=== PATIENT | female | born 1940 | race Caucasian/White ===

== ENCOUNTER 2018-07-31 16:14 | Observation (INO) ==
[2018-07-31] MEDS ORDERED: Aspirin 325 MG TABLET PO ONE (16:37)
--- NOTE | 2018-07-31 16:40 | Emergency Department Note ---
Disposition Clinical Impression: Pleural effusion, Dyspnea on exertion Disposition: Admitted As Inpatient Condition: Fair Referrals: Geovanni Gama DO [Primary Care Provider] - Forms: ED Satisfaction Letter Time of Disposition: 20:39 SOB HPI - General Chief Complaint: ED Shortness of Breath/Dyspnea Stated Complaint: ELEAZAR Time Seen by Provider: 07/31/18 16:20 Source: patient Mode of arrival: ambulatory Limitations: no limitations Nursing Notes Reviewed: Yes Vital Signs Reviewed: Yes - History of Present Illness Patient is a 78-year-old female with past medical history of hypertension, previous pleural effusions after surgery that required drainage. Patient was unsure of what surgery she underwent. States that this episode was several years ago. Symptoms of cough, right ear discomfort for the past 5 or 6 days. She was seen by her primary care physician Dr. Johnson, she says that she saw his nurse practitioner, did not have chest x-ray performed but was prescribed antibiotics for possible bronchitis and is unsure what antibiotic she was prescribed. She is taken 4-5 days and has 2 days left. She says that for the past 2 days, she has developed posterior chest discomfort and some shortness of breath, she also has substernal chest discomfort this started around the same time. States that this posterior chest pain feels somewhat similar to when she had pleural effusions. Describes that pain as a dull ache. She describes the substernal chest discomfort as a pressure that gets worse and with exertion, does not worsen with deep inspiration. No associated nausea, vomiting, fevers, diarrhea, abdominal pain. She denies any dysuria, hematuria, vaginal bleeding or discharge. Denies any history of COPD or CHF. - Related Data Home Medications Medication Instructions Recorded Confirmed Estradiol [Estrace] 1 mg PO DAILY 08/29/15 10/10/15 Lisinopril [Zestril] 20 mg PO HS 08/29/15 10/10/15 Metoprolol XL (24 HR) Succ [Toprol 25 mg PO DAILY 08/29/15 10/10/15 XL] Multivitamin/Iron/Folic Acid 1 each PO DAILY 10/10/15 10/10/15 [Centrum Complete Multivit Tab] Previous Rx's Medication Instructions Recorded Gabapentin [Neurontin] 300 mg PO HS #14 capsule 09/07/15 Docusate [Colace] 100 mg PO BID #60 capsule 09/18/15 Simethicone [Gas-X] 80 mg PO QID PRN #50 tab.chew 09/18/15 Allergies Allergy/AdvReac Type Severity Reaction Status Date / Time clonazepam [From Klonopin] AdvReac PT UNSURE Verified 08/30/15 19:21 OF REACTION Oxycodone AdvReac Headache Verified 10/10/15 19:48 All systems ED: reviewed and negative except as stated. Constitutional: Denies: fever Cardiovascular: Reports: chest pain Respiratory: Reports: cough, dyspnea. Denies: wheezes, sputum production Gastrointestinal: Denies: abdominal pain, nausea, vomiting, diarrhea Genitourinary: Denies: urgency, dysuria, frequency, hematuria, discharge Integumentary: Denies: rash Neurological: Denies: headache, weakness, numbness, paresthesias Past Medical History - Past Medical History Attestation: Yes The following information was validated with the patient. 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 history - Social History Smoking Status: Never smoker Smokeless Tobacco Status: No Alcohol use: Reports: none Drug use: Reports: none Physical Exam - General Limitations: no limitations General appearance: alert, in no apparent distress - Head Head exam: atraumatic, normocephalic, normal inspection - Eye Eye exam: Present: normal appearance, PERRL, EOMI - ENT ENT exam: normal exam, normal oropharynx, mucous membranes moist - Neck Neck exam: Present: normal inspection, full ROM, trachea midline - Chest Chest inspection: Present: normal inspection, symmetric chest wall rise - Respiratory Respiratory exam: Present: other (Mild decrease in left lower lobe breath sounds. Otherwise, no significant wheezing or crackles appreciated. No signs of any increased work of breathing or respiratory distress at this time.). Absent: respiratory distress, wheezes, stridor, accessory muscle use - Cardiovascular Cardiovascular exam: Present: regular rate, normal rhythm, normal heart sounds - Abdominal Exam Abdominal exam: Present: soft, Non-Tender. Absent: tenderness, distention, guarding, rebound, rigidity - Extremities Exam Extremities exam: Present: normal inspection, full ROM. Absent: tenderness, pedal edema - Back Exam Back exam: Present: normal inspection, full ROM. Absent: tenderness, CVA tenderness (R), CVA tenderness (L) - Neurological Exam Neurological exam: Present: alert, oriented X3 - Psychiatric Psychiatric exam: Present: normal affect, normal mood - Skin Skin exam: Present: warm, dry, intact, normal color Course Course Narrative: Patient was mildly hypertensive. Otherwise, the rest of the vitals within normal limits. Physical exam shows some decrease in left lower lobe breath sounds. Otherwise, no overt crackles or wheezes. The rest of the physical exam was fairly benign. No reproducible chest discomfort on exam. We will perform EKG, chest x-ray, basic blood work and troponin level. Patient was given aspirin. EK07/31/2018 at 16:37. Normal sinus rhythm. Heart rate 84. CO 162. QRS 91. QTC 413. Normal axis. No acute ST elevation or depression. 17:39 labs showed no major abnormalities. Troponin negative. EKG showed no acute ST changes. Chest x-ray shows pleural effusions and bilateral lower lobes. We will obtain CT noncontrast to assess further. Aspirin held at this time in case patient requires any intervention for drainage of effusions. 20:37 CT shows small to moderate bilateral pleural effusions. Is also ectasia of the ascending aorta that is stable. Also cyst is present. Results discussed with the patient. Give the patient a dose of Lasix and discuss admission. She is still short of breath, satting 95% on room air but is short of breath when she is up walking around. We will go ahead and give her aspirin. We will admit to the hospitalist at this time for further care. Recommend possible echocardiogram and pulmonary consult for further evaluation of pleural effusions. Currently, there are no signs of any pedal edema that would be consistent with CHF. Chest X-Ray 07/31/18 16:35 IMPRESSION: Bilateral pleural effusions. D/ / Lorenzo Maya MD / Lorenzo Maya MD Interpreting Provider: Lorenzo Maya MD Chest CT 07/31/18 17:37 IMPRESSION: Small to moderate bilateral effusions with associated airspace opacity, atelectasis favored over pneumonia. The right effusion appears to be minimally loculated. Ectasia of the ascending aorta measuring up to 4.2 cm, similar to prior examination. Stable low-density lesion in the posterior mediastinum adjacent to the descending aorta. 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 D/ / 07/31/2018 19:22:45 Kirk Chung MD / Lizzeth Loza Interpreting Provider: Kirk Chung MD Vital Signs Temperature 98.2 F 07/31/18 16:17 Pulse Rate 88 07/31/18 16:17 Respiratory Rate 20 07/31/18 16:17 Blood Pressure 156/84 07/31/18 16:17 O2 Sat by Pulse Oximetry 95 07/31/18 16:17 Temperature 98.2 F 07/31/18 16:38 Pulse Rate 83 07/31/18 19:45 Respiratory Rate 16 07/31/18 19:45 Blood Pressure 169/91 07/31/18 19:45 O2 Sat by Pulse Oximetry 96 07/31/18 19:45 Oxygen Delivery Oxygen Delivery Room Air Shortness of Breath/Dyspnea - [facility] Narrative Medical decision making narrative: Patient was mildly hypertensive. Otherwise, the rest of the vitals within normal limits. Physical exam shows some decrease in left lower lobe breath sounds. Otherwise, no overt crackles or wheezes. The rest of the physical exam was fairly benign. No reproducible chest discomfort on exam. We will perform EKG, chest x-ray, basic blood work and troponin level. Patient was given aspirin. EK07/31/2018 at 16:37. Normal sinus rhythm. Heart rate 84. CO 162. QRS 91. QTC 413. Normal axis. No acute ST elevation or depression. 17:39 labs showed no major abnormalities. Troponin negative. EKG showed no acute ST changes. Chest x-ray shows pleural effusions and bilateral lower lobes. We will obtain CT noncontrast to assess further. Aspirin held at this time in case patient requires any intervention for drainage of effusions. 20:37 CT shows small to moderate bilateral pleural effusions. Is also ectasia of the ascending aorta that is stable. Also cyst is present. Results discussed with the patient. Give the patient a dose of Lasix and discuss admission. She is still short of breath, satting 95% on room air but is short of breath when she is up walking around. We will go ahead and give her aspirin. We will admit to the hospitalist at this time for further care. Recommend possible echocardiogram and pulmonary consult for further evaluation of pleural effusions. Currently, there are no signs of any pedal edema that would be consistent with CHF. - Medical Records Medical records reviewed: Yes I reviewed the patient's medical records. - Lab Data Lab results reviewed: Yes I reviewed the patient's lab results. Result diagrams: 07/31/18 16:50 07/31/18 16:50 Lab Results 07/31/18 07/31/18 07/31/18 Range/Units 16:50 16:50 16:50 WBC 9.7 (4.3-11.1) K/mcL RBC 4.22 (3.82-4.97) M/mcL Hgb 13.4 (11.5-15.4) g/dL Hct 40.5 (35.3-44.9) % MCV 96.0 (83.0-100.0) fL MCH 31.8 (28.0-33.3) pg MCHC 33.1 (31.6-35.5) g/dL RDW 11.8 (11.5-14.5) % Plt Count 178 (140-400) K/mcL MPV 10.3 (9.4-12.4) fL Immature Gran % 0.4 (0-4) % Seg Neutrophils % 81.2 % Lymphocytes % 6.1 % Monocytes % 8.3 % Eosinophils % 3.9 % Basophils % 0.1 % Neutrophils # 7.9 (1.6-8.9) K/mcL Lymphocytes # 0.6 (0.6-4.6) K/mcL Monocytes # 0.8 (0.0-1.3) K/mcL Eosinophils # 0.4 (0.0-0.6) K/mcL Basophils # 0.0 (0.0-0.2) K/mcL Sodium 136 (136-145) mEq/L Potassium 4.0 (3.5-5.1) mEq/L Chloride 105 (98-107) mEq/L Carbon Dioxide 22 L (23-29) mEq/L BUN 10 (8-23) mg/dL Creatinine 0.70 (0.60-1.20) mg/dL Est GFR ( Amer) > 60 (> 60) Est GFR (Non-Af Amer) > 60 (> 60) BUN/Creatinine Ratio 14 (6-26) Glucose 111 H (70-105) mg/dL Calculated Osmolality 282 (280-300) Calcium 9.1 (8.6-10.3) mg/dL Total Bilirubin 0.8 (0.3-1.0) mg/dL Direct Bilirubin 0.1 (0.0-0.2) mg/dL Indirect Bilirubin 0.7 (0.0-1.2) mg/dL AST 18 (13-39) Units/L ALT 6 L (7-52) Units/L Alkaline Phosphatase 85 (34-104) Units/L Troponin I < 0.03 (< 0.04) ng/mL B-Natriuretic Peptide 99 (Less than 100) pg/mL Serum Total Protein 6.4 (6.4-8.9) g/dL Albumin 3.9 (3.5-5.7) g/dL Globulin 2.5 (2.4-3.5) g/dL Albumin/Globulin Ratio 1.6 (1.1-2.2) Urine Color (Yellow) Urine Clarity (Clear) Urine pH (5.0-8.0) pH Units Ur Specific [place] (1.010-1.025) Urine Protein (Neg-Trace) mg/dL Urine Glucose (UA) (Normal) mg/dL Urine Ketones (Negative) mg/dL Urine Blood (Negative) Urine Nitrite (Negative) Urine Bilirubin (Negative) Urine Urobilinogen (Normal) mg/dL Ur Leukocyte Esterase (Negative) Ur Culture Indicated? (NO) 07/31/18 Range/Units 17:10 WBC (4.3-11.1) K/mcL RBC (3.82-4.97) M/mcL Hgb (11.5-15.4) g/dL Hct (35.3-44.9) % MCV (83.0-100.0) fL MCH (28.0-33.3) pg MCHC (31.6-35.5) g/dL RDW (11.5-14.5) % Plt Count (140-400) K/mcL MPV (9.4-12.4) fL Immature Gran % (0-4) % Seg Neutrophils % % Lymphocytes % % Monocytes % % Eosinophils % % Basophils % % Neutrophils # (1.6-8.9) K/mcL Lymphocytes # (0.6-4.6) K/mcL Monocytes # (0.0-1.3) K/mcL Eosinophils # (0.0-0.6) K/mcL Basophils # (0.0-0.2) K/mcL Sodium (136-145) mEq/L Potassium (3.5-5.1) mEq/L Chloride (98-107) mEq/L Carbon Dioxide (23-29) mEq/L BUN (8-23) mg/dL Creatinine (0.60-1.20) mg/dL Est GFR ( Amer) (> 60) Est GFR (Non-Af Amer) (> 60) BUN/Creatinine Ratio (6-26) Glucose (70-105) mg/dL Calculated Osmolality (280-300) Calcium (8.6-10.3) mg/dL Total Bilirubin (0.3-1.0) mg/dL Direct Bilirubin (0.0-0.2) mg/dL Indirect Bilirubin (0.0-1.2) mg/dL AST (13-39) Units/L ALT (7-52) Units/L Alkaline Phosphatase (34-104) Units/L Troponin I (< 0.04) ng/mL B-Natriuretic Peptide (Less than 100) pg/mL Serum Total Protein (6.4-8.9) g/dL Albumin (3.5-5.7) g/dL Globulin (2.4-3.5) g/dL Albumin/Globulin Ratio (1.1-2.2) Urine Color Yellow (Yellow) Urine Clarity Clear (Clear) Urine pH 7.5 (5.0-8.0) pH Units Ur Specific [place] < 1.005 L (1.010-1.025) Urine Protein Negative (Neg-Trace) mg/dL Urine Glucose (UA) Normal (Normal) mg/dL Urine Ketones Trace H (Negative) mg/dL Urine Blood Negative (Negative) Urine Nitrite Negative (Negative) Urine Bilirubin Negative (Negative) Urine Urobilinogen Normal (Normal) mg/dL Ur Leukocyte Esterase Negative (Negative) Ur Culture Indicated? NO (NO) - Radiology Data Radiology results reviewed: Yes I reviewed the patient's radiology results. Chest X-Ray 10/06/18 16:35 IMPRESSION: Bilateral pleural effusions. D/ / Lorenzo Maya MD / Lorenzo Maya MD Interpreting Provider: Lorenzo Maya MD Chest CT 07/31/18 17:37 IMPRESSION: Small to moderate bilateral effusions with associated airspace opacity, atelectasis favored over pneumonia. The right effusion appears to be minimally loculated. Ectasia of the ascending aorta measuring up to 4.2 cm, similar to prior examination. Stable low-density lesion in the posterior mediastinum adjacent to the descending aorta. 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 D/ / 07/31/2018 19:22:45 Kirk Chung MD / Lizzeth Loza Interpreting Provider: Kirk Chung MD - EKG Data EKG attestation: Yes I reviewed and interpreted this EKG. Raj - Raj Situation: Demographics, MOA Background: Presenting Complaint, Relevant PMH, Meds, & Allergies Assessment: Vital Signs, Course and respsone to treatment, Exam Concerns, Patient/Family Expectation, Pertinant Lab Results Recommendation: Barrier(s) to disposition, Recommendation based on pending studies, treatments, or consults Raj Report Given to: Dr. Ale Anthony Repor Time: 20:39
[2018-07-31 17:01] LABS: Basophils % 0.1 %; Eosinophils # 0.4 K/mcL (0.0-0.6); Eosinophils % 3.9 %; Hematocrit 40.5 % (35.3-44.9); Hemoglobin 13.4 g/dL (11.5-15.4); Immature Granulocytes % 0.4 % (0-4); Lymphocytes # 0.6 K/mcL (0.6-4.6); Lymphocytes % 6.1 %; Mean Corpuscular HGB Conc 33.1 g/dL (31.6-35.5); Mean Corpuscular Hemoglobin 31.8 pg (28.0-33.3); Mean Platelet Volume 10.3 fL (9.4-12.4); Monocytes # 0.8 K/mcL (0.0-1.3); Monocytes % 8.3 %; Neutrophils # 7.9 K/mcL (1.6-8.9); Platelet Count 178 K/mcL (140-400); Red Blood Count 4.22 M/mcL (3.82-4.97); Red Cell Distribution Width 11.8 % (11.5-14.5); Segmented Neutrophils % 81.2 %
[2018-07-31 17:27] LABS: BUN/Creatinine Ratio 14 (6-26); Blood Urea Nitrogen 10 mg/dL (8-23); Calcium 9.1 mg/dL (8.6-10.3); Carbon Dioxide 22 mEq/L (23-29); Chloride 105 mEq/L (98-107); Glucose 111 mg/dL (70-105); Osmolality,Calculated 282 (280-300); Sodium 136 mEq/L (136-145); eGFR For Non-African Americans > 60 (> 60)
[2018-07-31 17:28] LABS: Troponin I < 0.03 ng/mL (< 0.04)
[2018-07-31 17:35] LABS: Bilirubin,Urine Negative (Negative); Blood,Urine Negative (Negative); Clarity,Urine Clear (Clear); Color,Urine Yellow (Yellow); Glucose,Urine (UA) Normal (Normal); Ketones,Urine Trace mg/dL (Negative); Leukocyte Esterase,Urine Negative (Negative); Nitrite,Urine Negative (Negative); PH,Urine 7.5 pH Units (5.0-8.0); Protein,Urine Negative (Neg-Trace); Specific Gravity,Urine < 1.005 (1.010-1.025); Urobilinogen,Urine Normal (Normal)
--- NOTE | 2018-07-31 17:43 | Emergency Department Note ---
Disposition Clinical Impression: Pleural effusion, Dyspnea on exertion Disposition: Admitted As Inpatient Referrals: Geovanni Gama DO [Primary Care Provider] - Forms: ED Satisfaction Letter General Adult HPI - General Chief complaint: ED Shortness of Breath/Dyspnea Stated complaint: ELEAZAR Time Seen by Provider: 07/31/18 16:20 Source: patient Mode of arrival: ambulatory Limitations: no limitations - History of Present Illness Pain Scale: 8 - Related Data Home Medications Medication Instructions Recorded Confirmed Estradiol [Estrace] 1 mg PO DAILY 08/29/15 10/10/15 Lisinopril [Zestril] 20 mg PO HS 08/29/15 10/10/15 Metoprolol XL (24 HR) Succ [Toprol 25 mg PO DAILY 08/29/15 10/10/15 XL] Multivitamin/Iron/Folic Acid 1 each PO DAILY 10/10/15 10/10/15 [Centrum Complete Multivit Tab] Previous Rx's Medication Instructions Recorded Gabapentin [Neurontin] 300 mg PO HS #14 capsule 09/07/15 Docusate [Colace] 100 mg PO BID #60 capsule 09/18/15 Simethicone [Gas-X] 80 mg PO QID PRN #50 tab.chew 09/18/15 Allergies Allergy/AdvReac Type Severity Reaction Status Date / Time clonazepam [From Klonopin] AdvReac PT UNSURE Verified 08/30/15 19:21 OF REACTION Oxycodone AdvReac Headache Verified 10/10/15 19:48 Constitutional: Denies: fever Cardiovascular: Reports: chest pain Respiratory: Reports: cough, dyspnea. 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 NURSE OBSTETRICS history - Social History Smoking Status: Never smoker Smokeless Tobacco Status: No Alcohol use: Reports: none Drug use: Reports: none Physical Exam - General Limitations: no limitations General appearance: alert, in no apparent distress Course Vital Signs Temperature 98.2 F 10/06/18 16:17 Pulse Rate 88 07/31/18 16:17 Respiratory Rate 20 07/31/18 16:17 Blood Pressure 156/84 07/31/18 16:17 O2 Sat by Pulse Oximetry 95 07/31/18 16:17 Temperature 98.2 F 07/31/18 16:38 Pulse Rate 88 07/31/18 16:38 Respiratory Rate 20 07/31/18 16:38 Blood Pressure 156/84 07/31/18 16:38 O2 Sat by Pulse Oximetry 95 07/31/18 16:38 Oxygen Delivery Oxygen Delivery Room Air Medical Decision Making - Lab Data Result diagrams: 07/31/18 16:50 07/31/18 16:50 Lab Results 07/31/18 07/31/18 07/31/18 Range/Units 16:50 16:50 16:50 WBC 9.7 (4.3-11.1) K/mcL RBC 4.22 (3.82-4.97) M/mcL Hgb 13.4 (11.5-15.4) g/dL Hct 40.5 (35.3-44.9) % MCV 96.0 (83.0-100.0) fL MCH 31.8 (28.0-33.3) pg MCHC 33.1 (31.6-35.5) g/dL RDW 11.8 (11.5-14.5) % Plt Count 178 (140-400) K/mcL MPV 10.3 (9.4-12.4) fL Immature Gran % 0.4 (0-4) % Seg Neutrophils % 81.2 % Lymphocytes % 6.1 % Monocytes % 8.3 % Eosinophils % 3.9 % Basophils % 0.1 % Neutrophils # 7.9 (1.6-8.9) K/mcL Lymphocytes # 0.6 (0.6-4.6) K/mcL Monocytes # 0.8 (0.0-1.3) K/mcL Eosinophils # 0.4 (0.0-0.6) K/mcL Basophils # 0.0 (0.0-0.2) K/mcL Sodium 136 (136-145) mEq/L Potassium 4.0 (3.5-5.1) mEq/L Chloride 105 (98-107) mEq/L Carbon Dioxide 22 L (23-29) mEq/L BUN 10 (8-23) mg/dL Creatinine 0.70 (0.60-1.20) mg/dL Est GFR ( Amer) > 60 (> 60) Est GFR (Non-Af Amer) > 60 (> 60) BUN/Creatinine Ratio 14 (6-26) Glucose 111 H (70-105) mg/dL Calculated Osmolality 282 (280-300) Calcium 9.1 (8.6-10.3) mg/dL Troponin I < 0.03 (< 0.04) ng/mL B-Natriuretic Peptide 99 (Less than 100) pg/mL Attestation Statement - Attestation Attestation: I examined this patient and my medical decision-making was reviewed with the Resident Physician. I agree with the documented findings, disposition and treatment plan as described except to the extent set forth below. 78-year-old female presents emergency room for shortness of breath. Patient has a history of bilateral pleural effusions after a hiatal hernia and esophageal surgery years ago requiring bilateral chest tube placement. She states she felt short of breath again that she had at that time. Her x-ray is concerning for bilateral pleural effusions. She is no evidence of any CHF on physical exam based on no lower extremity swelling. Her BNP is also within normal limits. We will do a CT of the chest without contrast. Patient will need to be admitted for further workup of this low effusions.
[2018-07-31 17:56] LABS: Alanine Aminotransferase 6 Units/L (7-52); Albumin 3.9 g/dL (3.5-5.7); Albumin/Globulin Ratio 1.6 (1.1-2.2); Alkaline Phosphatase 85 Units/L (34-104); Aspartate Amino Transferase 18 Units/L (13-39); Bilirubin,Direct 0.1 mg/dL (0.0-0.2); Bilirubin,Indirect 0.7 mg/dL (0.0-1.2); Bilirubin,Total 0.8 mg/dL (0.3-1.0); Globulin 2.5 g/dL (2.4-3.5); Total Protein 6.4 g/dL (6.4-8.9)
[2018-07-31] MEDS ORDERED: Furosemide 20 MG/2 ML VIAL IVP ONE ×2 (19:35→21:46)
[2018-07-31] MEDS ORDERED: Naloxone 0.4 MG/ML INJ IVP PRN (21:42)
[2018-07-31] MEDS ORDERED: Acetaminophen 325 MG TABLET PO PRN (21:42)
--- NOTE | 2018-07-31 21:50 | Internal Med History&Physical ---
Date of Encounter: 08/01/18 Time of Encounter: 21:50 Internal Medicine - H&P: HPI Chief complaint: Shortness of Breath Admitted From: Emergency Dept Plans for Post Hospital Care: Home History of present illness: Ms. Cabezas is a 78 year old female with past medical history of hypertension , GERD, hiatal hernia repair who presented to the emergency department for shortness of breath. She states her shortness of breath began a week ago, with associated upper torso swelling, she states it felt like her bra was tighter. She was also having associated ear pain and urinary frequency for which she visited her family physician. The PCP started and antibiotic the patient cannot recall for the ear pain. Since then the patient has had increasing shortness of breath and edema and urinary frequency. She also mentions increased salt intake over the last week. She also mentions the onset of a pleuritic type pain. On presentation to the emergency department her vital signs were within normal limits however due to the complaint of shortness of breath workup was initiated. Chest x-ray demonstrated bilateral pleural effusions, EKG showed sinus rhythm and normal rate, chest CT corroborated bilateral pleural effusions. Troponin was less than 0.03, BNP was triple her baseline but still under 100, rest of laboratory results were noncontributory. Past Med Surg Social Fam HX - Past Medical History Medical history: arthritis, asthma, GERD, hypertension, other Additional medical history: PT DENIES HYPERLIPIDEMIA Psychiatric history: anxiety, depression - Past Surgical History Surgical History: JESUS/BSO, other Additional surgical history: HERNIA REPAIR. esophagus surgery - Social History Smoking Status: Never smoker Smokeless Tobacco Status: No Alcohol use: none Drug use: none - Family History Brother Living Status: Hx Family Cardiac Disorders: Yes (Myocardial infarction) Hx Family Cancer: Yes (Brain tumor) Mother Hx Family Cardiac Disorders: Yes (Heart disease) Internal Medicine - H&P: Meds Estradiol [Estrace] 1 mg PO DAILY 08/29/15 [History] Lisinopril [Zestril] 20 mg PO HS 08/29/15 [History] Metoprolol XL (24 HR) Succ [Toprol XL] 25 mg PO DAILY 08/29/15 [History] Gabapentin [Neurontin] 300 mg PO HS #14 capsule 09/07/15 [Rx] Docusate [Colace] 100 mg PO BID #60 capsule 09/18/15 [Rx] Simethicone [Gas-X] 80 mg PO QID PRN #50 tab.chew 09/18/15 [Rx] Multivitamin/Iron/Folic Acid [Centrum Complete Multivit Tab] 1 each PO DAILY [History] 3 Allergy/AdvReac Type Severity Reaction Status Date / Time clonazepam [From Klonopin] AdvReac PT UNSURE Verified 08/30/15 19:21 OF REACTION Oxycodone AdvReac Headache Verified 10/10/15 19:48 All Systems PM: A 10-system review of systems was performed and is negative for pertinent findings except as documented above in the HPI. - Constitutional Constitutional: no fatigue, no fever(s), no weakness - Cardiovascular Cardiovascular ROS IM: dyspnea, edema, no chest pain, no irregular heart rhythm , no syncope - Respiratory Respiratory: no excessive phlegm production - Gastrointestinal Gastrointestinal: no abdominal pain, no diarrhea, no vomiting - Genitourinary Genitourinary: urinary frequency - Neurological Neurological ROS: no abnormal speech, no focal weakness - Psychiatric Psychiatric: no confusion - Constitutional Vitals: Temp Pulse Resp BP Pulse Ox 98.2 F 82 16 164/85 96 07/31/18 16:38 07/31/18 21:09 07/31/18 21:09 07/31/18 21:09 07/31/18 21:09 Exam: Patient in no acute distress, alert and oriented 3 Cranial nerves II through XII intact Heart in regular rate and rhythm without murmur or gallop Lungs exhibited scattered crackles superiorly and diminished lung sounds inferiorly Abdomen soft and nontender with normal bowel sounds present Bilateral lower extremities nonedematous, non vesicular rash present Skin warm and dry Internal Med - H&P Results - Labs CBC & Chem 7: 07/31/18 16:50 07/31/18 16:50 - Assessment and plan (1) Acute respiratory failure Current Visit: Yes Status: Acute Assessment and plan: Patient presented for shortness of breath CT chest on admission identified bilateral pleural effusions Patient has had 1 previous episode of pleural effusion associated with status post Moraima fundoplication Suspect pleural effusions are secondary to heart failure BNP was elevated to 3 times her baseline Patient does not have previous diagnosis of heart failure Previous echo in 2014 showed EF60% She does admit to increased salt intake recently EKG on admission shows sinus rhythm and normal rate Hemodynamically stable Patient given 20 mg IV Lasix once Plan 20mg PO LAsix BID Cardiac diet fluid restricted to 2L Strict ins and outs and daily weights Echocardiogram Cardiology Consult for new onset heart failure Qualifiers: Respiratory failure complication: unspecified whether with hypoxia or hypercapnia Qualified Code(s): J96.00 - Acute respiratory failure, unspecified whether with hypoxia or hypercapnia (2) Bilateral pleural effusion Current Visit: Yes Status: Acute Assessment and plan: Bilateral pleural effusion identified on chest CT Likely secondary to new onset heart failure Patient's labs are relatively benign, white count within normal limits Differentials include inflammatory or infectious or neoplastic process Ectasia seen on ascending aorta, unchanged from previous imaging Plan Echocardiogram to rule out Cardiac etiology Infectious etiology unlikely with normal labs Continue to monitor (3) Hypertension Current Visit: No Status: Chronic Assessment and plan: Patient has chronic hypertension managed with home medications Blood pressure stable here We will hold home medications until confirmed by pharmacy Qualifiers: Hypertension type: essential hypertension Qualified Code(s): I10 - Essential (primary) hypertension (4) DVT prophylaxis Current Visit: No Status: Acute Assessment and plan: Intermittent pneumatic compression devices 3 times a day - Time Spent With Patient Total time spent is greater than 50% in coordination of care (as documented) at patient's floor/unit and/or counseling patient:
[2018-08-01 04:46] LABS: Basophils % 0.2 %; Eosinophils # 0.4 K/mcL (0.0-0.6); Eosinophils % 5.9 %; Hematocrit 37.8 % (35.3-44.9); Hemoglobin 12.5 g/dL (11.5-15.4); Immature Granulocytes % 0.3 % (0-4); Lymphocytes % 16.1 %; Mean Corpuscular HGB Conc 33.1 g/dL (31.6-35.5); Mean Corpuscular Hemoglobin 31.7 pg (28.0-33.3); Mean Corpuscular Volume 95.9 fL (83.0-100.0); Mean Platelet Volume 9.6 fL (9.4-12.4); Monocytes # 0.8 K/mcL (0.0-1.3); Monocytes % 13.3 %; Neutrophils # 3.9 K/mcL (1.6-8.9); Platelet Count 222 K/mcL (140-400); Red Blood Count 3.94 M/mcL (3.82-4.97); Red Cell Distribution Width 11.8 % (11.5-14.5); Segmented Neutrophils % 64.2 %
[2018-08-01 05:14] LABS: BUN/Creatinine Ratio 14 (6-26); Blood Urea Nitrogen 11 mg/dL (8-23); Calcium 9.1 mg/dL (8.6-10.3); Carbon Dioxide 28 mEq/L (23-29); Chloride 104 mEq/L (98-107); Glucose 80 mg/dL (70-105); Osmolality,Calculated 286 (280-300); Potassium 3.5 mEq/L (3.5-5.1); Sodium 139 mEq/L (136-145); eGFR For Non-African Americans > 60 (> 60)
[2018-08-01] MEDS: Furosemide 20 MG TABLET PO SCH ×2 (06:54→17:33)
[2018-08-01] MEDS ORDERED: Albuterol 2.5 MG/3 ML NEBULIZER IH PRN (12:19)
--- NOTE | 2018-08-01 12:25 | Internal Med Progress Note ---
<Julienne Buckley - Last Filed: 08/01/18 14:56> Hospitalist Progress Note - Encounter Date of Encounter: 08/01/18 - Exam Vitals: Temp Pulse Resp BP Pulse Ox 98.1 F 88 16 114/75 95 08/01/18 14:45 08/01/18 14:45 08/01/18 14:45 08/01/18 14:45 08/01/18 14:45 - Assessment and Plan (1) DVT prophylaxis Current Visit: No Status: Acute (2) Hypertension Current Visit: No Status: Chronic (3) Bilateral pleural effusion Current Visit: Yes Status: Acute (4) Acute respiratory failure Current Visit: Yes Status: Acute - Time Spent with Patient Total time spent is greater than 50% in coordination of care (as documented) at patient's floor/unit and/or counseling patient: Internal Medicine: Result - Labs CBC & Chem 7: 08/01/18 04:36 08/01/18 04:36 Labs: Short CBC 08/01/18 Range/Units 04:36 WBC 6.1 (4.3-11.1) K/mcL Hgb 12.5 (11.5-15.4) g/dL Hct 37.8 (35.3-44.9) % Plt Count 222 (140-400) K/mcL Neutrophils # 3.9 (1.6-8.9) K/mcL BMP 08/01/18 04:36 Sodium 139 Potassium 3.5 Chloride 104 Carbon Dioxide 28 BUN 11 Creatinine 0.79 Glucose 80 Calcium 9.1 Consult Discharge Plan - Plan Referrals: Geovanni Gama DO [Primary Care Provider] - - Attending Attestation I examined this patient and my medical decision-making was reviewed with the Resident Physician Dr Castañeda. I agree with the documented findings, disposition and treatment plan as described except to the extent set forth below /addl details below. Ms Cabezas presented with sob x1 week and was found to have bl pleural effusions. Awake, resting in bed. Notes one week of worsening sob associated with dyspnea on exertion and orthopnea in recent days. She denies any le edema, pnd, cough, sputum, wheezing, sinus congestion. Denies chest pain, palpitations or chf history. History of "toxemia" per pt with fluid in lungs in remote past that requires "tubes to drain it". No fevers, chills, night sweats, weight loss or gain. She is a never smoker. She is active daily at home,taking outings, but no recent long trips, denies immobilization, calf pain, calf swelling. While she was refusing lasix last night she did take it today. Of note her ROS obtained today differs from in ED in which she reported cough and right ear pain for 5days, and 2 days of substernal chest discomfort that is similar to whne she had effusions before. gen- alert, awake,appears stated age cv- reg rate and rhythm, normal s1,s2, no murmurs appreciated, no jvd, no HJ reflex, no le edema lungs- + crackles bl bases, worse on left, normal resp effort on o2 nc, no rhonchi or wheezing abd- soft, non tender, non distended, + bs neuro- AAOx3 Shortness of Breath, no docuemtned Hypoxia on review of ED course, rather normal sats with subjective sob on room air Likely 2/2 Pleural Effusions, etiology uk at this time, rule out cardiac etiology, specifically chf, acs; possible infectious precipitating factor given sxs of cough she reported to ED, this is not c/w PE given vs, and history -s/p IV lasix, now oral BID as she is intermittently refusing and preferring oral vs iv lasix, strict i/os weight, net neg near 1L this am, prn o2 nc -no infectious process evident on CT chest, will repeat CXR after further diuresis -cards consulted on admit for concern for new onset chf, ekg without ischemic changes, trop neg, will trend, tele, echo pending,fu cards recs -if no improvement with diuresis will obtain IR thoracentesis and send fluid studies <Ori Castañeda - Last Filed: 08/01/18 16:39> Hospitalist Progress Note - Encounter Date of Encounter: 08/01/18 Time of Encounter: 09:45 - Subjective Interval History: Patient was seen and examined up and since morning. Patient states that overall she is bouncing from admission last evening. She does state that she is continuing to feel short of breath and feels tight in her chest. She states this is feels very similar to when she had pleural effusions which did require thoracentesis and chest tubes bilaterally in the past. She is very concerned this morning about her symptoms and is inquiring about another thoracentesis. She denies any symptoms of fevers, chills, cough, nausea, vomiting. She denies any chest pain but does admit to this tightness in her chest. - Exam Vitals: Temp Pulse Resp BP Pulse Ox 98.1 F 87 15 125/73 94 08/01/18 12:03 08/01/18 12:08/01/18 12:03 08/01/18 12:03 08/01/18 12:03 Exam: Gen.: Vitals noted. No acute distress. AAOx3, mildly anxious appearing HEENT: PERRL/EOMI, oropharynx clear, Normocephalic, atraumatic, MMM Cardiac: RRR, no murmur, +S1/S2 Pulmonary: Mild wheezing on left, as well as diminished sounds in bases. equal chest expansion Abdomen: soft, nontender, BS noted, no guarding, no rebound. MSK: ROM intact, no joint swelling noted Extremities: no BLE edema, nontender calf, no cyanosis or clubbing Neuro: A&Ox3, moves all extremities, no focal deficits Psych: Appropriate mood and behavior - Assessment and Plan (1) Acute respiratory failure Current Visit: Yes Status: Acute Assessment and Plan: Patient presented for shortness of breath -At this time, etiology remains unclear. Possibly secondary to pleural effusions in the setting of diastolic heart failure versus viral bronchitis CT chest on admission identified bilateral pleural effusions Patient has had 1 previous episode of pleural effusion associated with status post Moraima fundoplication which did require chest tubes BNP within normal onset emergency department of 99 Previous echo in 2015 showed EF60% with mild diastolic dysfunction EKG on admission shows sinus rhythm and normal rate, negative troponin x3 She was started on Lasix 20 mg by mouth twice a day with good diuresis (-1.3 L since admission) --Repeat echocardiogram pending Plan Cardiac diet fluid restricted to 2L Strict ins and outs and daily weights Cardiology Consulted and do not suspect new onset heart failure however will follow with echocardiogram results. Consider ischemic eval if no etiology identified. Start DuoNeb treatments Continue supplemental oxygen Consider diagnostic thoracentesis on Thursday if no improvement (2) Hypertension Current Visit: Yes Status: Chronic Assessment and Plan: Patient has chronic hypertension managed with home medications Blood pressure stable here with most recent reading of 114/75 Well-controlled without home medications We will continue to hold while we are giving Lasix (3) Bilateral pleural effusion Current Visit: Yes Status: Acute Assessment and Plan: Bilateral pleural effusion identified on chest CT Likely secondary to new onset heart failure versus infectious etiology Patient's labs are relatively benign, white count within normal limits Differentials include inflammatory or infectious or neoplastic process Ectasia seen on ascending aorta, unchanged from previous imaging Plan Echocardiogram to rule out Cardiac etiology Infectious etiology unlikely however left lower lobe haziness may represent infection versus atelectasis Continue to monitor Consider diagnostic thoracentesis if cardiac workup negative (4) (HFpEF) heart failure with preserved ejection fraction Current Visit: Yes Status: Chronic Assessment and Plan: As noted above Ejection fraction 60% with mild diastolic dysfunction Further management as above (5) DVT prophylaxis Current Visit: Yes Status: Acute Assessment and Plan: SCDs - Time Spent with Patient Total time spent is greater than 50% in coordination of care (as documented) at patient's floor/unit and/or counseling patient: Internal Medicine: Result - Labs CBC & Chem 7: 08/01/18 04:36 08/01/18 04:36 Labs: Short CBC 08/01/18 Range/Units 04:36 WBC 6.1 (4.3-11.1) K/mcL Hgb 12.5 (11.5-15.4) g/dL Hct 37.8 (35.3-44.9) % Plt Count 222 (140-400) K/mcL Neutrophils # 3.9 (1.6-8.9) K/mcL BMP 08/01/18 04:36 Sodium 139 Potassium 3.5 Chloride 104 Carbon Dioxide 28 BUN 11 Creatinine 0.79 Glucose 80 Calcium 9.1 <DrJulienne Monreal - Last Filed: 08/01/18 14:56> (2) Hypertension Qualifiers: Hypertension type: essential hypertension Qualified Code(s): I10 - Essential (primary) hypertension (4) Acute respiratory failure Qualifiers: Respiratory failure complication: unspecified whether with hypoxia or hypercapnia Qualified Code(s): J96.00 - Acute respiratory failure, unspecified whether with hypoxia or hypercapnia <Ori Castañeda - Last Filed: 08/01/18 16:39> (1) Acute respiratory failure Qualifiers: Respiratory failure complication: unspecified whether with hypoxia or hypercapnia Qualified Code(s): J96.00 - Acute respiratory failure, unspecified whether with hypoxia or hypercapnia (2) Hypertension Qualifiers: Hypertension type: essential hypertension Qualified Code(s): I10 - Essential (primary) hypertension
--- NOTE | 2018-08-01 14:54 | Cardiology Consult Note ---
Date of Encounter: 08/01/18 Time of Encounter: 14:51 Assessment and Plan (1) Dyspnea Current Visit: No Status: Acute Likely related to her recurrent pleural effusions, less likely cardiac in etiology due to low BNP and negative cardiac markers EKG shows nonspecific changes Patient states symptoms are similar to her previous symptoms at time of pleural effusions If patient continues to be short of breath and has descending exertion after thoracentesis consider a cardiac ischemic workup Echocardiogram to rule out structural heart modalities during this admission Qualifiers: Dyspnea type: other forms of dyspnea Qualified Code(s): R06.09 - Other forms of dyspnea Discussion w patient/family: The assessment and plan as outlined above was discussed with the patient and/or family members who expressed understanding and agreement. All questions were answered. Thank you for involving us in the care of your patient. Please call with any questions. History of Present Illness Consult date: 08/01/18 Consult reason: SOB Chief complaint: SOB History of present illness: Ms. Cabezas is a 78 year old female with history of hypertension, GERD, hiatal hernia, pleural effusions with both thoracentesis and chest tubes placed in the past presents with shortness of breath. Patient describes swelling in her chest area a sense of fullness. CT shows pleural effusions once again. Patient's BNP is 99 and negative cardiac enzymes. She denies any exertional symptoms until recently. She denies any chest pain, orthopnea, PND, presyncope or syncope Past Med Surg Social Fam HX - Past Medical History Medical history: arthritis, asthma, GERD, hypertension, other Additional medical history: PT DENIES HYPERLIPIDEMIA Psychiatric history: anxiety, depression - Past Surgical History Surgical History: JESUS/BSO, other Additional surgical history: HERNIA REPAIR. esophagus surgery - Social History Smoking Status: Never smoker Smokeless Tobacco Status: No Alcohol use: none Drug use: none - Family History Brother Living Status: Hx Family Cardiac Disorders: Yes (Myocardial infarction) Hx Family Cancer: Yes (Brain tumor) Mother Age: 88 Living Status: Hx Family Cardiac Disorders: Yes (Heart disease) Medications and Allergies Estradiol [Estrace] 1 mg PO DAILY 08/29/15 [History] Metoprolol XL (24 HR) Succ [Toprol XL] 25 mg PO DAILY 08/29/15 [History] Gabapentin [Neurontin] 300 mg PO HS #14 capsule 09/07/15 [Rx] Docusate [Colace] 100 mg PO BID #60 capsule 09/18/15 [Rx] Simethicone [Gas-X] 80 mg PO QID PRN #50 tab.chew 09/18/15 [Rx] Multivitamin/Iron/Folic Acid [Centrum Complete Multivit Tab] 1 each PO DAILY [History] 3 Allergy/AdvReac Type Severity Reaction Status Date / Time clonazepam [From Klonopin] AdvReac PT UNSURE Verified 08/30/15 19:21 OF REACTION Oxycodone AdvReac Headache Verified 10/10/15 19:48 All Systems Review: The remainder of the systems were reviewed and are negative Physical Examination Vital Signs, Last 4 Hours Temp Pulse Resp BP Pulse Ox 08/01/18 13:00 16 94 08/01/18 12:03 98.1 F 87 15 125/73 94 General: Conversant (Diminished air entry bibasilar left more than right), No Apparent Distress HEENT: Atraumatic, Normocephaly, Mucus Membranes Moist Neck: No JVD, Normal carotid pulses Cardiac: Reg Rate and Rhythm, Normal S1 and S2, No Murmur Lungs: Normal Breath Sounds, No Wheeze, Rales, Rhonchi Neuro: Alert and responsive, No focal deficits noted Abdomen: Soft, Non-Tender Skin: No rashes noted on visualized skin Musculoskeletal: No Chest Wall Tenderness Extremities: No Clubbing, No Cyanosis, No Edema, Normal Pulses Results 08/01/18 04:36 08/01/18 04:36 Lab Results 08/01/18 08/01/18 04:36 04:36 WBC 6.1 Hgb 12.5 Hct 37.8 Plt Count 222 Sodium 139 Potassium 3.5 Chloride 104 Carbon Dioxide 28 BUN 11 Creatinine 0.79 Glucose 80 Calcium 9.1 Consult Discharge Plan - Plan Referrals: Geovanni Gama DO [Primary Care Provider] -
[2018-08-01] MEDS ORDERED: Gabapentin 300 MG CAPSULE PO SCH (21:00)
[2018-08-02 02:15] LABS: Basophils % 0.1 %; Eosinophils # 0.6 K/mcL (0.0-0.6); Eosinophils % 7.7 %; Hematocrit 36.4 % (35.3-44.9); Hemoglobin 12.3 g/dL (11.5-15.4); Immature Granulocytes % 0.3 % (0-4); Immature Platelets 8.5 % (1.1-6.1); Lymphocytes # 1.7 K/mcL (0.6-4.6); Lymphocytes % 23.2 %; Mean Corpuscular HGB Conc 33.8 g/dL (31.6-35.5); Mean Corpuscular Hemoglobin 31.8 pg (28.0-33.3); Mean Corpuscular Volume 94.1 fL (83.0-100.0); Mean Platelet Volume 11.5 fL (9.4-12.4); Monocytes # 0.8 K/mcL (0.0-1.3); Monocytes % 11.1 %; Neutrophils # 4.1 K/mcL (1.6-8.9); Platelet Count 203 K/mcL (140-400); Prothrombin Time 11.6 Seconds (9.4-12.1); Red Blood Count 3.87 M/mcL (3.82-4.97); Red Cell Distribution Width 11.9 % (11.5-14.5); Segmented Neutrophils % 57.6 %
[2018-08-02 02:31] LABS: BUN/Creatinine Ratio 19 (6-26); Blood Urea Nitrogen 14 mg/dL (8-23); Calcium 9.3 mg/dL (8.6-10.3); Carbon Dioxide 29 mEq/L (23-29); Chloride 104 mEq/L (98-107); Glucose 94 mg/dL (70-105); Osmolality,Calculated 286 (280-300); Potassium 3.5 mEq/L (3.5-5.1); Sodium 138 mEq/L (136-145); eGFR For Non-African Americans > 60 (> 60)
[2018-08-02] MEDS: Furosemide 20 MG TABLET PO SCH (06:40)
--- NOTE | 2018-08-02 08:36 | Internal Med Progress Note ---
Hospitalist Progress Note - Encounter Date of Encounter: 08/02/18 Time of Encounter: 09:10 - Exam Vitals: Temp Pulse Resp BP Pulse Ox 97.8 F 83 14 116/70 95 08/02/18 07:05 08/02/18 07:05 08/02/18 07:05 08/02/18 07:05 08/02/18 07:05 - Assessment and Plan (1) DVT prophylaxis Current Visit: Yes Status: Acute (2) Hypertension Current Visit: Yes Status: Chronic (3) Bilateral pleural effusion Current Visit: Yes Status: Acute (4) Acute respiratory failure Current Visit: Yes Status: Acute - Time Spent with Patient Total time spent is greater than 50% in coordination of care (as documented) at patient's floor/unit and/or counseling patient: Internal Medicine: Result - Labs CBC & Chem 7: 08/02/18 01:11 08/02/18 01:11 Labs: Short CBC 08/02/18 Range/Units 01:11 WBC 7.1 (4.3-11.1) K/mcL Hgb 12.3 (11.5-15.4) g/dL Hct 36.4 (35.3-44.9) % Plt Count 203 (140-400) K/mcL Neutrophils # 4.1 (1.6-8.9) K/mcL BMP 08/02/18 01:11 Sodium 138 Potassium 3.5 Chloride 104 Carbon Dioxide 29 BUN 14 Creatinine 0.74 Glucose 94 Calcium 9.3 Cardiac Enzymes 08/01/18 08/01/18 Range/Units 15:24 20:53 Troponin I < 0.03 < 0.03 (< 0.04) ng/mL - ABG Interpretation ABG results: PT/INR, D-dimer PT 11.6 Seconds (9.4-12.1) 08/02/18 01:11 - Impressions Impressions Chest X-Ray 08/02/18 07:00 IMPRESSION: Stable bilateral mild pleural effusions and lung base consolidation. D/ / 08/02/2018 08:11:25 Eran Pineda MD / konrad Interpreting Provider: Eran Pineda MD Consult Discharge Plan - Plan Referrals: Geovanni Gama DO [Primary Care Provider] - (2) Hypertension Qualifiers: Hypertension type: essential hypertension Qualified Code(s): I10 - Essential (primary) hypertension (4) Acute respiratory failure Qualifiers: Respiratory failure complication: unspecified whether with hypoxia or hypercapnia Qualified Code(s): J96.00 - Acute respiratory failure, unspecified whether with hypoxia or hypercapnia
--- NOTE | 2018-08-02 12:05 | Cardiology Progress Note ---
Date of Encounter: 08/02/18 Time of Encounter: 10:30 Assessment and Plan (1) Dyspnea Current Visit: No Status: Acute Per cardiology: -Likely related to her recurrent pleural effusions, less likely cardiac in etiology due to low BNP and negative cardiac markers -EKG shows nonspecific changes -Patient states symptoms are similar to her previous symptoms at time of pleural effusions -TTE this admission with LVEF 60-65%, mild diastolic dysfunction, no segmental wall motion abnormalities noted. TTE similar to previous 2015. -Again, suspect symptoms from recurrent pleural effusions. States has had since hernia surgery a few years ago. Qualifiers: Dyspnea type: other forms of dyspnea Qualified Code(s): R06.09 - Other forms of dyspnea (2) Diastolic dysfunction Current Visit: Yes Status: Acute Per cardiology: -Known mild diastolic dysfunction, similar to 2015 TTE. -Agree with sodium and fluid restrictions. -Euvolemic on exam. -Agree with diuretic. -Net negative 1700ml. -Continue diuretic at home. -Discussed at length with patient regarding CHF education. Patient states understanding -Cardiology will sign off, will arrange outpatient follow up. Discussion w patient/family: The assessment and plan as outlined above was discussed with the patient who expressed understanding and agreement. All questions were answered. Thank you for involving us in the care of your patient. Please call with any questions. Discussed and reviewed with . Subjective Principal diagnosis: Dyspnea Interval history: Patient reports shortness of breath is improved. Objective Vital Signs, Last 4 Hours Temp Pulse Resp BP Pulse Ox 08/02/18 10:41 98.1 F 84 14 119/75 94 08/02/18 09:00 95 General: Conversant, No Apparent Distress HEENT: Atraumatic, Normocephaly, Mucus Membranes Moist Neck: No JVD, Normal carotid pulses Cardiac: Reg Rate and Rhythm, Normal S1 and S2, No Murmur Lungs: Normal Breath Sounds, No Wheeze, Rales, Rhonchi Neuro: Alert and responsive, No focal deficits noted Abdomen: Soft, Non-Tender Skin: No rashes noted on visualized skin Musculoskeletal: No Chest Wall Tenderness Extremities: No Clubbing, No Cyanosis, No Edema, Normal Pulses Results 08/02/18 01:11 08/02/18 01:11 Lab Results Impressions Chest X-Ray 08/02/18 07:00 IMPRESSION: Stable bilateral mild pleural effusions and lung base consolidation. D/ / 08/02/2018 08:11:25 Eran Pineda MD / [email or web address] Interpreting Provider: Eran Pineda MD Echocardiogram 08/02/18 07:00 Impressions: LVEF 60-65%. Normal LV chamber size, wall thickness and function. Mild left ventricular diastolic dysfunction. Normal right ventricular structure and function. No evidence of pulmonary hypertension. Active Medications Acetaminophen (Tylenol) 650 mg PO Q6HR PRN PRN Reason: Mild Pain/Fever Stop: 01/30/19 21:43 Last Admin: 08/01/18 17:32 Dose: 650 mg Albuterol Sulfate (Proventil Neb) 2.5 mg IH [id number] PRN; Protocol PRN Reason: Shortness Of Breath/Wheezing Stop: 01/31/19 12:20 Last Admin: 08/01/18 12:56 Dose: 2.5 mg Furosemide (Lasix) 20 mg PO Q12HR RIGOBERTO Stop: 01/31/19 06:01 Last Admin: 08/02/18 06:40 Dose: 20 mg Gabapentin (Neurontin) 300 mg PO HS RIGOBERTO Stop: 01/31/19 21:01 Last Admin: 08/01/18 22:03 Dose: 300 mg Naloxone HCl (Narcan) 0.4 mg IVP Q2MIN PRN PRN Reason: SEE COMMENTS Stop: 01/30/19 21:43 Laboratory Tests 07/31/18 07/31/18 08/01/18 16:50 16:50 15:24 Hgb Creatinine Troponin I < 0.03 < 0.03 B-Natriuretic Peptide 99 08/01/18 08/02/18 08/02/18 20:53 01:11 01:11 Hgb 12.3 Creatinine 0.74 Troponin I < 0.03 B-Natriuretic Peptide - Imaging and Cardiology Chest Xray: report reviewed Echo: report reviewed - EKG Interpretation EKG results cardiology: other (Telemetry reviewed with average HR previous 12 hours noted to be 79, SR. PVCs and PACs noted.) Consult Discharge Plan - Plan Referrals: Geovanni Gama DO [Primary Care Provider] -
[2018-08-02 15:04] VITALS: BP 125/70
--- NOTE | 2018-08-02 16:17 | Discharge Summary ---
<Melanie Barrett - Last Filed: 08/02/18 16:14> - NOTES TO OUTPATIENT PROVIDER Notes to Outpatient Provider: Ms. Cabezas presented to the ED on 07/01/18 for shortness of breath. She had noted some increased edema. CT in the ED noted bilateral pleural effusion. Her EKG was sinus rhythm and her echo noted EF of 60 to 65% with mild LV diastolic dysfunction. She was on 20 mg of Lasix BID and her shortness of breath improved and today her 6 minute oxygen test noted good oxygen saturation on room air. It is unknown why she developed the pleural effusion and her CT noted a nodule along the left oblique fissure compatible to intraparenchymal lymph node and may require an outpatient pulmonology work up. She will be discharged at home with 20 mg furosemide for two weeks. She has continued to remain anxious and may benefit from close follow up. Also, she is noted to be on estrogen medication and may be beneficial to stop it given her age and risks assoicated with it. Date of Encounter: 08/02/18 Time of Encounter: 10:00 - Discharge Diagnosis (1) Bilateral pleural effusion Priority: Primary Status: Acute (2) Hypertension Priority: Secondary Status: Chronic Qualifiers: Hypertension type: essential hypertension Qualified Code(s): I10 - Essential (primary) hypertension (3) DVT prophylaxis Priority: Secondary Status: Resolved (4) Acute respiratory failure Priority: Secondary Status: Ruled-out Assessment and Plan: Ruled out Qualifiers: Respiratory failure complication: unspecified whether with hypoxia or hypercapnia Qualified Code(s): J96.00 - Acute respiratory failure, unspecified whether with hypoxia or hypercapnia Hospital course: Ms. Candelario is a 78 year old female with past medial history of hypertension , GERD and hiatal hernia who presented to the ED for shortness of breath and felt her bra was tighter. She was noting increasing edema and urinary frequency and noted increased salt intake over the past week. In the ED she has a CT of the chest which showed mild to moderate bilateral pleural effusions. She noted a previous history of similar presentation after a [place] and required bilateral chest tubes. Her EKG was within normal limits. Her echo showed 60 to 65% ED with mild diastolic dysfunction and no valvular abnormalities. Her BNP was three times her normal limits but less than 100. Her troponin was less than 0.03 x 3. She received 20 mg Lasix BID and during her admission and has improvement in her breathing. She never required more than 2 liters of oxygen. Her CT did show a nodule along the left oblique fissure similar to previous CT and noted as intraparenchymal lymph node. She may require a pulmonology follow up by her PCP because the cause of her pleural effusion is not known and the node may need to be evaluated outpatient. Today her chest xray noted a mild pleural effusion. And her lower extremity edema was resolved today. She has remained comfortable and oxygen saturation of 96% on room air. Her 6 minute walk test today resulted with 96% oxygen when sitting and when walking she was 99% to 91% on room air. She will be discharged at home with 20 mg furosemide for two weeks. She has continued to remain anxious and may benefit from close follow up. - Time Spent with Patient Total time spent providing and/or coordinating discharge services: Greater than 30 minutes - Discharge Medications Prescriptions: Furosemide [Lasix] 20 mg PO DAILY 14 Days #14 tablet Home Medications: Estradiol [Estrace] 1 mg PO DAILY 08/29/15 [History] Metoprolol XL (24 HR) Succ [Toprol XL] 25 mg PO DAILY 08/29/15 [History] Gabapentin [Neurontin] 300 mg PO HS #14 capsule 09/07/15 [Rx] Simethicone [Gas-X] 80 mg PO QID PRN #50 tab.chew 09/18/15 [Rx] Multivitamin/Iron/Folic Acid [Centrum Complete Multivit Tab] 1 each PO DAILY [History] Estradiol [Yuvafem] 10 mcg VG 2XW 08/02/18 [History] Furosemide [Lasix] 20 mg PO DAILY 14 Days #14 tablet 08/02/18 [Rx] Allergies/Adverse Reactions: 3 Allergy/AdvReac Type Severity Reaction Status Date / Time clonazepam [From Klonopin] AdvReac PT UNSURE Verified 08/30/15 19:21 OF REACTION Oxycodone AdvReac Headache Verified 10/10/15 19:48 Date of admission: 07/31/18 21:10 Primary care physician: Geovanni Gama DO Consults: 07/31/18 23:35 Consult to Cardiology [CONS] Routine Comment: Consulting Provider: [facility] Reason for Consult: New onset heart failure Call Completed: No Discharging clinician: Melanie Barrett Anticipated date of discharge: 08/02/18 - Constitutional Vitals: Temp Pulse Resp BP Pulse Ox 98.0 F 86 14 125/70 96 08/02/18 15:02 08/02/18 15:02 08/02/18 15:02 08/02/18 15:02 08/02/18 15:02 General appearance: Present: cooperative, A&O X 3, no acute distress Exam: awake, alert and oriented x 3 - Head Head exam: Present: atraumatic - Eye Eye exam: Present: normal appearance, sclera anicteric. Absent: conjunctival injection - ENT ENT exam: Present: mucous membranes moist, normal exam - Respiratory Respiratory exam: Present: CTAB. Absent: chest wall tenderness, rhonchi, stridor, wheezes - Cardiovascular Cardiovascular exam: Present: RRR, +S1, +S2 - GI/Abdominal GI/Abdominal exam: Present: normal bowel sounds, soft. Absent: firm, guarding, rebound, tenderness - Extremities Exam Extremities exam: Present: normal inspection, warm. Absent: calf tenderness, pedal edema - Psychiatric Psychiatric exam: Present: anxious, flat affect - Skin Skin exam: Present: dry, intact, normal color, warm. Absent: cyanosis, rash - Patient Status Disposition: Home, Self-Care Condition: Fair - Discharge Instructions Instructions: Pleural Effusion (DC) Follow Up With: Geovanni Gama DO [Primary Care Provider] - (Web request entered. 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 Cabezas is a 78 year old female - Time Spent with Patient Total time spent providing and/or coordinating discharge services: Date of admission: 07/31/18 21:10 Primary care physician: Geovanni Gama DO Consults: 07/31/18 23:35 Consult to Cardiology [CONS] Routine Comment: Consulting Provider: Cardiology [facility] Reason for Consult: New onset heart failure Call Completed: No - Constitutional Vitals: Temp Pulse Resp BP Pulse Ox 98.0 F 86 14 125/70 96 08/02/18 15:02 08/02/18 15:02 08/02/18 15:02 08/02/18 15:02 08/02/18 15:02 - Attending Attestation I examined this patient and my medical decision-making was reviewed with the Resident Physician Dr Castañeda. I agree with the documented findings, disposition and treatment plan as described except to the extent set forth below /addl details below. Ms Cabezas presented with sob x1 week and was found to have bl pleural effusions. After further detailed discussion with her she noted she had effusions after her mary that required tubes and she believes effusion has been present since that time. Given concern for chf cardiology was consulted and they did not believe effusions were cardiac in nature on review of her work up. She is feeling back to baseline, did not require IR intervention as effusion improved on repeat imaging prior to discharge and she was asx with normal o2 sats on 6 mintue walk on day of discharge. She has hx of lung nodule and effusion in past as noted above. cT chest imaging showed no acute findings pulm findings. She is discharged to home in stable condition with pcp fu for further investigation of recurrent pulm effusion and recommended referral to outp pulm. Awake, resting in bed. Nback to baseline, no sob, no [place], no orthopnea, wheezing , cough, chest pain or palpitations. She believes effusionmay have been there since before. She is agreeable to cont course of lasix on dc and will fu with pcp for further work up and possible pulm referral. gen- alert, awake,appears stated age cv- reg rate and rhythm, normal s1,s2, no murmurs appreciated, no jvd, no HJ reflex, no le edema lungs-ctabl, no wheezing, rhonchi or crackles, normal resp effort on ra abd- soft, non tender, non distended, + bs neuro- AAOx3 Shortness of Breath, no documented Hypoxia on review of ED course, rather normal sats with subjective sob on room air-H&P noted acute hypoxic respiratory failure--i do not agree with this diagnosis Likely 2/2 Pleural Effusions, etiology remains uk at this time as cardiology does not feel cardiac in nature, and with diuresis effusions improved with too little fluid to tap for testing at this time Echo shows diastolic dysfunction and this could formally be classified as possible acute diastolic chf exacerbation- with cards rec only for po lasix for effusion on dc and no further work up other than preformed inpt or addl meds -possible infectious precipitating factor given sxs of cough she reported to ED , this is not c/w PE given vs and pt reported history--she may have recently had viral resp infection that precipitated this, but no focal pna or fevers/ leukocytosis to suggest active infection -cT chest showed -Small to moderate bilateral effusions with associated airspace opacity, atelectasis favored over pneumonia. The right effusion appears to be minimally loculated -Stable low-density lesion in the posterior mediastinum adjacent to the descending aorta. 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 -cont 2 week course lasix po on dc and fu with pcp re effusions and ct chest findings for further work up
--- NOTE | 2018-08-03 17:29 | Electrocardiograph Report ---
[place] [id number] Test Date: 2018-07-31 Pat Name: Chiquita Cabezas Department: [id number] Room: 3A55 Gender: F Plant Operations Coordinator: : 1940 Requested By: Braxton Cuenca Order Number: [id number] Reading MD: Chris Amado Measurements Intervals [place] Rate: 84 P: 80 PA: 162 QRS: 76 QRSD: 91 T: 58 QT: 349 QTc: 413 Interpretive Statements Sinus rhythm Possible left atrial enlargement Nonspecific ST and T-wave changes Electronically Signed On 08-03-2018 17:28:25 EDT by Chris Amado
== END 2018-08-02 17:31 | disposition home or self-care (01) ==
LOC: EMEROOARM 16:14 → 3ANU 16:14 → SUATTDRO 21:10 → 3ANU 22:00
PROVIDERS: ADMIT Family Medicine; ATTEND Internal Medicine